=== PATIENT | male | born 1985 | race Caucasian/White ===

== ENCOUNTER 2017-06-02 03:01 | Emergency (ER) | payer OTHER, BC ==
[~2017-06-02] VITALS: Ht 167.6 cm; Wt 84.1 kg
[2017-06-02] MEDS ORDERED: ZESTRIL30 MG PO (03:14)
[2017-06-02 08:30] VITALS: BP 90/52
== END 2017-06-02 08:46 | disposition short-term general hospital (02) ==
LOC: ED 03:01
DX: N19 Unspecified kidney failure (principal); I95.9 Hypotension, unspecified; E87.2 Acidosis; I10 Essential (primary) hypertension; F17.200 Nicotine dependence, unspecified, uncomplicated
CPT/HCPCS: J2405; J7030

== ENCOUNTER → 2017-06-08 | Outpatient (CLI) | payer OTHER ==
[2017-06-02 08:30] VITALS: BP 90/52
[~2017-06-08] MED LIST: ZESTRIL30 MG PO
== END ==
LOC: VAS 07:53 → PT 07:53
DX: R42 Dizziness and giddiness (principal); I95.9 Hypotension, unspecified

== ENCOUNTER → 2018-01-25 | Outpatient (CLI) | payer BC | LOC: CARDREHAB 16:08 | DX: G47.33 Obstructive sleep apnea (adult) (pediatric) (principal); R06.83 Snoring; R09.02 Hypoxemia; E66.9 Obesity, unspecified; Z68.32 Body mass index [BMI] 32.0-32.9, adult; G47.00 Insomnia, unspecified | CPT/HCPCS: G0399 ==